=== PATIENT | female | born 1975 | race Caucasian/White ===

== ENCOUNTER 2018-06-29 11:15 | Outpatient (CLI) | payer MEDICARE, MEDICAID ==
[2018-06-29 16:41] LABS: #Basophils 0.1 thou/uL (0.0-0.2); #Eosinphils 0.2 thou/uL (0.0-0.7); #Lymphocytes 2.4 thou/uL (1.20-3.40); #Monocytes 0.8 thou/uL (0.11-0.59); #Neutrophils 5.5 thou/uL (1.40-6.50); %Basophils 0.6 % (0.0-1.0); %Eosinophils 2.7 % (0.0-10.0); %Lymphocytes 26.6 % (21.0-51.0); %Monocytes 9.2 % (0.0-10.0); Hemoglobin 14.9 g/dL (12.0-16.0); Mean Corpuscular HGB CONC 32.9 g/dL (32.0-36.0); Mean Corpuscular Volume 91.3 fL (78.0-98.0); Mean Platelet Volume 7.2 fL (7.4-10.4); Platelet Count 312 thou/uL (130-400); RBC Distribution Width 12.5 % (11.5-14.5); Red Blood Cell (RBC) Count 4.96 mill/uL (4.20-5.40); White Blood Cell (WBC) Count 9.1 thou/uL (4.8-10.8)
[2018-06-29 17:08] LABS: ALT (SGPT) 16 U/L (8-55); AST (SGOT) 17 U/L (5-34); Albumin 4.1 g/dL (3.5-5.0); Alkaline Phosphatase 95 U/L (40-150); Anion Gap 12 mmol/L (10-20); BUN (Urea Nitrogen) 13 mg/dL (7.0-18.7); Bilirubin, Total 0.3 mg/dL (0.2-1.2); Calc. Creatinine Clearance 0 mL/min (70-130); Carbon Dioxide 23 mmol/L (22-29); Chloride 105 mmol/L (98-107); Estimated GFR-MDRD 88; Glucose 91 mg/dL (70-105); Potassium 3.9 mmol/L (3.5-5.1); Protein, Total 7.1 g/dL (6.0-8.3); Sodium 136 mmol/L (136-145)
== END 2018-06-29 11:16 | disposition home or self-care (01) ==
LOC: LABBT 11:15
PROVIDERS: ATTEND Surgery
DX: Z01.812 Encounter for preprocedural laboratory examination (principal); D17.9 Benign lipomatous neoplasm, unspecified
CPT/HCPCS: 80053; 85025

== ENCOUNTER 2018-07-05 07:22 | Day surgery (SDC) | payer MEDICARE, MEDICAID ==
[2018-06-29 16:10] VITALS: BMI 42.5
[2018-07-05] MEDS ORDERED: Midazolam HCl 2 mg/2 ml Vial ONE (08:17)
[2018-07-05] MEDS ORDERED: Bupivacaine HCl 0.5%/Epinephrine 1:200,000/PF 30 ml Vial ONE (08:32)
[2018-07-05] MEDS ORDERED: Lidocaine 2% PF 5 ML VIAL ONE (08:32)
[2018-07-05] MEDS ORDERED: Fentanyl 100 MCG/2 ML VIAL ONE ×3 (08:33→10:57)
[2018-07-05] MEDS ORDERED: Labetalol HCl 100 MG/20 ML VIAL ONE (10:33)
[2018-07-05] MEDS ORDERED: Morphine 4 MG/ML VIAL ONE (10:55)
[2018-07-05] MEDS ORDERED: diphenhydrAMINE 50 MG/ML VIAL ONE (11:00)
[2018-07-05] MEDS ORDERED: Dexamethasone 4 mg/ml Vial ONE (11:03)
[2018-07-05] MEDS ORDERED: Lidocaine 1% PF 5 ML VIAL ONE (13:54)
[2018-07-05] MEDS ORDERED: Ondansetron PF 4 MG/2 ML Vial ONE (13:54)
[2018-07-05] MEDS ORDERED: Dexamethasone 20 MG/5 ML VIAL ONE (13:54)
[2018-07-05] MEDS ORDERED: PROPOFOL 200 MG/20 ML VIAL ONE (13:54)
--- NOTE | 2018-07-05 15:10 | OP ---
DATE OF PROCEDURE: 07/05/2018 PREOPERATIVE DIAGNOSIS: Lipoma of left wrist and hip. PROCEDURE PERFORMED: Excisional biopsy. INDICATIONS: A 43-year-old female, who has had about a 19-year history of an enlarging mass on the left wrist that is starting to cause pain and a second one on her left hip that is just enlarging, but asymptomatic. FINDINGS: Very large sebaceous cyst, both of them, at least 3 x 3 cm in diameter. DESCRIPTION OF PROCEDURE: After informed consent was obtained, the patient was taken to the operating room, given general mask anesthesia, placed in the supine position. Her wrist was exposed on a hand board, and her hip was propped up with some pillows to expose that area as well. The skin was prepped and draped in usual fashion. Started on the wrist, local anesthesia was infiltrated subcutaneously and deep. During injection, I felt a pop and material expressed up the tendon sheath proximally, which indicated this was not a lipoma. An elliptical incision was performed, and very carefully, the wall was dissected out. It was dissected circumferentially. It was attached to the tendon sheath, and using blunt dissection was able to dissect this cyst wall off the tendon sheath and eventually excise it. There was sebaceous material that it tracked proximally up the tendon sheath, which was irrigated out. Hemostasis achieved with electrocautery subcutaneously and deep with 3-0 Vicryl suture. Then, again the wound was thoroughly irrigated. The subcu reapproximated with interrupted 3-0 Vicryl and the skin closed with a running subcuticular 4-0 Rapide. Steri-Strips applied and a compression bandage applied. Then, on her hip, a longitudinal incision was performed after local infiltrated subcutaneously and deep, and during this incision, again sebaceous material came out of the wound, so this was also a sebaceous cyst, large 3 cm. The wall was completely excised. Both these specimens were sent to pathology for further analysis. Hemostasis was achieved with electrocautery. Subcu reapproximated with interrupted 3-0 Vicryl. Skin closed with a running subcuticular 4-0 Rapide. Steri-Strips applied. Sterile bandage applied. The patient tolerated the procedure well, transferred to Recovery in good condition. Sponge and needle count verified correct x2. Job ID: [id number]
== END 2018-07-05 12:57 | disposition home or self-care (01) ==
LOC: SDC 07:22
PROVIDERS: ATTEND Surgery
PROC: 0JBH0ZZ Excision of Left Lower Arm Subcutaneous Tissue and Fascia, Open Approach (ICD-10-PCS; principal; 2018-07-05)
PROC: 0JBM0ZZ Excision of Left Upper Leg Subcutaneous Tissue and Fascia, Open Approach (ICD-10-PCS; 2018-07-05)
DX: L72.0 Epidermal cyst (principal); E11.9 Type 2 diabetes mellitus without complications; F17.200 Nicotine dependence, unspecified, uncomplicated; Z88.5 Allergy status to narcotic agent
CPT/HCPCS: 88304; J0670; J0690; J1100; J1200; J2001; J2250; J2270; J2405; J2704; J3010

== ENCOUNTER 2018-10-20 19:30 | Outpatient (CLI) | payer MEDICARE, MEDICAID | END 2018-10-20 19:31 | disposition home or self-care (01) | LOC: SLEEPLAB 19:30 | PROVIDERS: ATTEND Student in an Organized Health Care Education/Training Program | DX: G47.33 Obstructive sleep apnea (adult) (pediatric) (principal); I10 Essential (primary) hypertension; R53.83 Other fatigue; R09.89 Other specified symptoms and signs involving the circulatory and respiratory systems; E66.9 Obesity, unspecified; Z68.41 Body mass index [BMI] 40.0-44.9, adult | CPT/HCPCS: 95810 ==

== ENCOUNTER 2018-11-02 20:30 | Outpatient (CLI) | payer MEDICARE, MEDICAID | END 2018-11-02 20:31 | disposition home or self-care (01) | LOC: SLEEPLAB 20:30 | PROVIDERS: ATTEND Student in an Organized Health Care Education/Training Program | DX: G47.33 Obstructive sleep apnea (adult) (pediatric) (principal); R53.83 Other fatigue; I10 Essential (primary) hypertension; E66.9 Obesity, unspecified; E11.9 Type 2 diabetes mellitus without complications | CPT/HCPCS: 95811 ==